=== PATIENT | male | born 1980 | race Caucasian/White ===

== ENCOUNTER → 2021-03-23 | Outpatient (CLI) | payer OTHER ==
[2021-03-24 08:13] LABS: VITAMIN D, 25-HYDROXY 26.5 ng/mL (30.0-100.0)
[2021-03-24 11:13] LABS: RHEUMATOID ARTHRITIS FACTOR <10.0 IU/mL (<14.0)
== END ==
LOC: LAB 10:56
PROVIDERS: Nurse Practitioner Family
DX: D89.9 Disorder involving the immune mechanism, unspecified (principal); M25.50 Pain in unspecified joint; R76.8 Other specified abnormal immunological findings in serum; E55.9 Vitamin D deficiency, unspecified; M79.10 Myalgia, unspecified site
CPT/HCPCS: 36415; 82550; 83520; 84439; 84443; 84550; 85652; 86140; 86200; 86431